=== PATIENT | male | born 1995 | race African-American/Black ===

== ENCOUNTER 2016-12-26 23:48 | Emergency (ER) | payer OTHER ==
[~2016-12-26] VITALS: Ht 180.3 cm; Wt 74.8 kg
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
== END 2016-12-27 02:52 | disposition home or self-care (01) ==
LOC: SED 23:48
DX: S00.33XA Contusion of nose, initial encounter (principal); J45.909 Unspecified asthma, uncomplicated; W51.XXXA Accidental striking against or bumped into by another person, initial encounter
CPT/HCPCS: 70486; 99283